=== PATIENT | male | born 1985 | race Hispanic/Latino ===

== ENCOUNTER 2022-07-25 07:19 | Emergency (ER) | payer SELFPAY ==
[~2022-07-25] VITALS: Ht 172.7 cm; Wt 79.3 kg
[2022-07-25 07:27] VITALS: BP 143/85
[2022-07-25 07:30] VITALS: BP 127/87
[2022-07-25] MEDS ORDERED: BACTRIM DS1 TAB PO (07:30)
[2022-07-25] MEDS ORDERED: CEPHALEXIN500 M1 PO (07:30)
[2022-07-25 07:45] VITALS: BP 140/97
[2022-07-25 08:28] VITALS: BP 140/97
== END 2022-07-25 08:32 | disposition home or self-care (01) | DRG 603 ==
LOC: ED 07:19
PROC: 0H9KXZZ Drainage of Right Lower Leg Skin, External Approach (ICD-10-PCS; principal; 2022-07-25)
DX: L02.415 Cutaneous abscess of right lower limb (principal)